=== PATIENT | female | born 1930 | race Caucasian/White ===

== ENCOUNTER 2018-10-25 09:20 | Emergency (ER) | payer MEDICARE, BC ==
--- NOTE | 2018-10-25 10:13 | EDM.PDOC ---
ED HPI GENERAL MEDICAL PROBLEM - General Chief Complaint: Neck Problem Stated Complaint: NECK PAIN Time Seen by Provider: 10/25/18 10:07 Source of Information: Reports: Patient History Limitations: Reports: No Limitations - History of Present Illness INITIAL COMMENTS - FREE TEXT/NARRATIVE: 88-year-old female presents to the ED for evaluation of diffuse right-sided cervical neck pain that has come on over the last 3 days. She thinks she would' ve injured it doing some vacuuming 4 days ago. Has never had similar problems. There is no pain radiating into the arm chest or into the hand. Range of motion is severely diminished especially flexion extension and lateral rotation and flexion to the left side. He has not taken any medication for the pain. She does take baby aspirin daily. He is here in [place] from [facility] for her grandson's wedding today. Onset: Gradual Onset Date: 10/22/18 Duration: Day(s):, Constant, Getting Worse Location: Reports: Neck (Right side of neck.) Quality: Reports: Ache, Sharp, Stabbing Severity: Moderate (Sharp and stabbing if she tries to move her head much. 7 out of 10) Improves with: Reports: Rest Worsens with: Reports: Movement Context: Reports: Other (Spontaneous occurrence with no known trauma.). Denies : Activity, Exercise, Lifting, Sick Contact, Trauma Associated Symptoms: Reports: No Other Symptoms Treatments [employer]GER: Reports: Other (see below) (None.) Right Neck Pain Score (Numeric/FACES): 9 - Related Data Allergies Allergy/AdvReac Type Severity Reaction Status Date / Time codeine Allergy Nausea and Verified 10/25/18 10:10 Vomiting Home Meds: Home Meds Diclofenac Sodium [Voltaren] 50 mg PO BID #16 tab.ec 10/25/18 [Rx] oxyCODONE HCl/Acetaminophen [Percocet 5-325 mg Tablet] 1 each PO Q6H PRN #12 tablet 10/25/18 [Rx] predniSONE [Deltasone] 20 mg PO ASDIRECTED #15 tablet 10/25/18 [Rx] Past Medical History Cardiovascular History: Reports: High Cholesterol, Hypertension, MS Other Cardiovascular History: heart disease - Past Surgical History GI Surgical History: Reports: Cholecystectomy Social & Family History - Tobacco Use Smoking Status *Q: Never Smoker Second Hand Smoke Exposure: Yes - Caffeine Use Caffeine Use: Reports: Coffee - Recreational Drug Use Recreational Drug Use: No - Living Situation & Occupation Living situation: Reports: , Alone Occupation: Retired ED ROS GENERAL - Review of Systems Review Of Systems: See Below Constitutional: Reports: No Symptoms HEENT: Reports: Glasses Respiratory: Reports: No Symptoms Cardiovascular: Reports: Blood Pressure Problem, Dyspnea on Exertion. Denies: Chest Pain, Claudication, Edema, Lightheadedness, Orthopnea, Palpitations Endocrine: Reports: Fatigue GI/Abdominal: Reports: Constipation (Occasional problems with constipation) : Reports: Frequency, Incontinence (Stress and urge-induced) Musculoskeletal: Reports: Joint Pain (Knees hips low back shoulders and neck at times.) Skin: Reports: No Symptoms Neurological: Reports: No Symptoms Psychiatric: Reports: No Symptoms Hematologic/Lymphatic: Reports: No Symptoms Immunologic: Reports: No Symptoms ED EXAM, UPPER BACK/NECK PAIN - Physical Exam Exam: See Below Exam Limited By: No Limitations General Appearance: Alert, WD/WN, Mild Distress, Other (Obviously has a very stiff neck.) Eye Exam: Bilateral Eye: Normal Inspection Head Exam: Atraumatic, Normocephalic Neck Exam: Normal Alignment, Normal Inspection, Limited Range of Motion (Very limited range of motion especially trying to lateral flex to the left side or lateral rotation to the left side.), Muscle Spasm, Painful Range of Motion ( Moderate paraspinal muscle spasm C5-C7 on the right side.), Paraspinous Muscle Tender (Right side), Tenderness, Tender Lateral. No: Full Range of Motion, Abnormal Alignment Nexus Criteria: No: Posterior, Midline Cervical Tenderness (Tender lateral cervical spine right side), Evidence of Intoxication, Altered Level of Consciousness, Focal Neurological Deficit, Painful Distraction Injuries Cardiovascular/Respiratory: Regular Rate, Rhythm, No M/R/G, Normal Peripheral Pulses, No JVD, Other (No carotid bruits.) Course - Vital Signs Last Recorded V/S: Last Vital Signs Temp 36.7 C 10/25/18 09:31 Pulse 63 10/25/18 09:31 Resp 16 10/25/18 09:31 BP 143/51 H 10/25/18 09:31 Pulse Ox 97 10/25/18 09:31 - Radiology Interpretation Free Text/Narrative:: 88-year-old female presents to the ED with right-sided cervical neck pain. This is come on over the last 3 days and hasn't limited her mobility extensively. No specific injuries although she suspicious she may have injured it while doing some heavy vacuuming the day before the symptoms started. In [place] for her grandson's wedding today. Denies any radiculopathy into right upper extremity or hand. Has marked limited range of motion cervical spine particularly trying to rotate or lateral flex to the left. Loss of 10-12 flexion and 12 of extension. This will be due to degenerative arthritis and disc disease although at this time there is no evidence of nerve root entrapment. Treatment is to be Percocet 5/3/25 milligrams one tablet every 6 hours as needed for pain relief. Voltaren 50 mg twice a day with food for 8 days. Deltasone 20 mg twice daily with breakfast and supper for 5 days and then once in the morning only for another 5 days. She will discontinue her baby aspirin ecchymoses on the anti- inflammatories. She has no history of diabetes. She is to follow-up with her personal care physician if not completely back to normal in 7 days time. Departure - Departure Time of Disposition: 10:07 Disposition: Home, Self-Care 01 Condition: Fair Clinical Impression: Cervical neck pain with evidence of disc disease - Discharge Information *PRESCRIPTION DRUG MONITORING PROGRAM REVIEWED*: Not Applicable *COPY OF PRESCRIPTION DRUG MONITORING REPORT IN PATIENT XOCHITL: Not Applicable Prescriptions: Diclofenac Sodium [Voltaren] 50 mg PO BID #16 tab.ec oxyCODONE HCl/Acetaminophen [Percocet 5-325 mg Tablet] 1 each PO Q6H PRN #12 tablet PRN Reason: pain relief. predniSONE [Deltasone] 20 mg PO ASDIRECTED #15 tablet Instructions: Cervical Sprain, [id number] Referrals: PCP,Not In Area [Primary Care Provider] - Forms: ED Department Discharge Additional Instructions: Evaluation the emergency room this morning in regards to diffuse right-sided cervical neck pain. This started 3 days ago and has persisted and perhaps is a little bit worse. Septic injuries. Patient reveals marked loss of range of motion of the neck due to pain in the right lower facet joints. 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 Every once in a while arthritis will flareup in the facet joints and cause the overlying muscle to go into spasm which limits her mobility substantially. Likely there is no evidence of a disc compressing a nerve root. Therefore no imaging was done today. Treatment is pain medication Percocet 5/325 mg one tablet every 6 hours as needed with food for pain relief. Take Deltasone 20 mg twice daily morning usually breakfast and supper for 5 days and then once in the morning only for another 5 days to reduce pain and inflammation in the cervical spine. She usually starts to work quite well in about 36 hours. The other medication is Voltaren 50 mg taken twice daily with breakfast and supper i.e. with food for the next 8 days again to degree relieve pain and inflammation in the neck and return the neck to normal range of motion. If not better in 7-8 days please follow-up with your personal care physician. He may require physiotherapy
== END 2018-10-25 10:30 | disposition home or self-care (01) ==
LOC: JD.ED 09:20
DX: M54.2 Cervicalgia (principal); I10 Essential (primary) hypertension; I25.2 Old myocardial infarction; Z90.49 Acquired absence of other specified parts of digestive tract; Z88.8 Allergy status to other drugs, medicaments and biological substances
CPT/HCPCS: 99283